=== PATIENT | male | born 1995 | race Caucasian/White ===

== ENCOUNTER → 2020-10-23 | Outpatient (CLI) | payer SELFPAY ==
[2020-10-23 13:40] LABS: SYNOVIAL FL. MONONUCLEAR 27.6 % (0-75); SYNOVIAL FLUID RBC 2000 /mm3 (0-0)
[2020-10-23 13:51] LABS: SYNOVIAL FLUID WBC 11188 /mm3 (200-600)
[2020-10-23 13:52] LABS: SYNOVIAL FLUID APPEARANCE CLOUDY; SYNOVIAL FLUID COLOR YELLOW
== END ==
LOC: ZCOL.LAB 12:58
PROVIDERS: Orthopaedic Surgery
DX: Z11.9 Encounter for screening for infectious and parasitic diseases, unspecified (principal); M25.561 Pain in right knee